=== PATIENT | female | born 1995 | race Caucasian/White ===

== ENCOUNTER 2017-09-05 21:54 | Emergency (ER) | payer BC, OTHER ==
[~2017-09-05] VITALS: Ht 160 cm; Wt 59.5 kg
[~2017-09-05 21:54] MED LIST: FLUT0.15 NAE; KRV28 PO; LEVO5TAB2 PO; MONT1TAB3 PO
[2017-09-05 21:57] VITALS: TEMP 36.7; Ht 160 cm; Wt 59.5 kg
[2017-09-05 22:22] VITALS: BP 133/87; PULSE 80; O2SAT 96
--- NOTE | 2017-09-05 23:43 | EMERGENCY ROOM VISIT NOTE ---
History Report prepared by Markie: Anton Pollard Under the Supervision of: Radha SimonO. First contact with patient: 22:04 Chief Complaint: OTHER COMPLAINT Stated Complaint: LICE? STUFF IN HAIR History of Present Illness The patient is a 21 year old female who presents to the Emergency Room with complaints of constant white things in her hair starting earlier tonight. The patient states that she used a new shampoo and a leave in conditioner tonight, and afterwards she felt clumps in her hair. No exacerbating or remitting factors. Pain is 0 out of 10. She states that she thinks that it is lice, though she states that she is not currently itchy. She additionally notes that she thinks that she has some black specks on her scalp. The patient states that she has had lice before, and she states that she has anxiety. She denies any fever, cough, and runny nose. Source of History: patient Onset: earlier tonight Position: other (hair) Quality: other (white things) Timing: constant Associated Symptoms: No fevers, No cough Review of Systems See HPI for pertinent positives & negatives. A total of 10 systems reviewed and were otherwise negative. Past Medical & Surgical Medical Problems: (1) Anxiety Social History Smoking Status: Never Smoker Housing Status: lives with roommate Occupation Status: [employer] student Current/Historical Medications Scheduled Ethinyl Estrad/Desogestrel (Kariva), 1 TAB PO DAILY Fluticasone Propionate (Nasal) (Flonase Allergy Relief), 1 SPRAY ELHAM BID Levocetirizine Dihydrochloride (Xyzal), 5 MG PO DAILY Montelukast Sodium (Singulair), 10 MG PO DAILY Allergies Coded Allergies: Peanut (Verified Allergy, Unknown, UNKNOWN A CHILD, 06/11/15) Physical Exam Vital Signs Date Time Temp Pulse Resp B/P (MAP) Pulse Ox O2 Delivery O2 Flow Rate FiO2 09/05/17 22:22 80 18 133/87 96 09/05/17 21:57 36.7 80 18 133/87 96 Room Air Physical Exam GENERAL: Sitting up in bed, alert, well appearing, well nourished, no distress, non-toxic HEAD: normocephalic atraumatic. Hair with small clumps of thick gummy/hard white off yellow substance. EYE EXAM: normal conjunctiva. OROPHARYNX: no exudate, no erythema, lips, buccal mucosa, and tongue normal and mucous membranes are moist NECK: supple, no nuchal rigidity, no adenopathy, non-tender LUNGS: Clear to auscultation. Normal chest wall mechanics HEART: no murmurs, S1 normal and S2 normal ABDOMEN: abdomen soft, non-tender, normo-active bowel sounds, no masses, no rebound or guarding. UPPER EXTREMITIES: upper extremities are grossly normal. LOWER EXTREMITIES: No pitting edema. NEURO EXAM: Normal sensorium. Medical Decision & Procedures ED Course ED COURSE: Vital signs were reviewed and showed hypertension The patients medical record was reviewed The above diagnostic studies were performed and reviewed. ED treatments and interventions as stated above. 2204: The patient was evaluated in room C11. A complete history and physical examination was performed. I discussed my findings with the patient and she understands and agrees with the treatment plan. Based on the patients age, coexisting illnesses, and exam the decision to treat as an outpatient was made. The patient remained stable while under my care. The patient appeared well at the time of discharge. Medical Decision Differential Diagnosis includes but is not limited to headache, tension headache , cluster headache, migraine, subarachnoid hemorrhage, meningitis, mass, central venous thrombus, concussion, trauma and epidural/subdural hemorrhage. Patient is a 21-year-old female that presents the ER for possible place. On exam she just has some small piece of foreign material stuck in her hair. There is no signs of any lice. Patient was updated at bedside. She was discharged follow-up with PCP as an outpatient. Discussed with Pt concerning signs and symptoms to watch out for. Pt was instructed to follow up with their PCP and discussed with the patient their option to return to the ED at anytime for persistent or worsening symptoms. The appropriate anticipatory guidance and out-patient management, including indications for return to the emergency department, were explained at length to the patient and understood. Medication Reconcilliation Current Medication List: was personally reviewed by me Blood Pressure Screening Patient's blood pressure: Elevated blood pressure Blood pressure disposition: Elevated BP felt to be situational Impression Primary Impression: Josee Scribe Attestation The scribe's documentation has been prepared under my direction and personally reviewed by me in its entirety. I confirm that the note above accurately reflects all work, treatment, procedures, and medical decision making performed by me. Departure Information Dispostion Home / Self-Care Referrals No Doctor, Assigned (PCP) Forms HOME CARE DOCUMENTATION FORM, IMPORTANT VISIT INFORMATION, WORK / SCHOOL INSTRUCTIONS Patient Instructions My [facility], Selenium Sulfide shampoo Additional Instructions Please follow up with your primary care doctor or if you are a student, [facility] with in the next 24 hours. Any worsening of your symptoms, please return to the ED immediately. This includes any fevers greater than 100.4, worsening pain, itching or any other concerning signs or symptoms from your standpoint. Please throw out your shampoo.
== END 2017-09-05 22:23 | disposition home or self-care (01) ==
LOC: C.EDB 21:55 → C.EDC 22:23
DX: L21.0 Seborrhea capitis (principal); Z79.3 Long term (current) use of hormonal contraceptives; Z91.010 Allergy to peanuts